=== PATIENT | female | born 1990 | race Two or more races ===

== ENCOUNTER 2020-08-28 10:27 | Emergency (ER) | payer SELFPAY ==
[~2020-08-28] VITALS: Ht 167.6 cm; Wt 171.5 kg
[2020-08-28] MEDS ORDERED: TETANUS/DIPHTHERIA TOX ADULT 0.5 ML SYR IM ONE (10:45)
== END 2020-08-28 12:56 | disposition home or self-care (01) ==
LOC: ER 10:57
DX: S61.452A Open bite of left hand, initial encounter (principal); S61.451A Open bite of right hand, initial encounter; W55.01XA Bitten by cat, initial encounter; Z23 Encounter for immunization
CPT/HCPCS: 90471; 90714; 99283